=== PATIENT | female | born 1995 | race Caucasian/White ===

== ENCOUNTER 2024-11-26 07:50 | Inpatient (IN) ==
[2024-11-26] MEDS ORDERED: OXYTOCIN 30 UNITS/NSS 30 UNITS/500 ML BAG IV PRN ×2 (09:22→21:02)
[2024-11-26] MEDS: LACTATED RINGER'S 1,000 ML IV PRN (09:50)
[2024-11-26] MEDS: OXYTOCIN 30 UNITS/NSS 30 UNITS/500 ML BAG IV PRN (09:51)
[2024-11-26 09:53] LABS: Hematocrit (blood only) 35.9 % (37.0-47.0); Hemoglobin 12.3 g/dl (12.0-16.0); Mean Corpuscular Hemoglobin 29.5 pg (25.0-34.0); Mean Corpuscular Hgb Conc 34.3 g/dL (32.0-36.0); Mean Corpuscular Volume 86.1 fL (80.0-100.0); Mean Platelet Volume 10.6 fL (9.4-12.4); Platelet Count 228 K/uL (130-400); RDW Coefficient of Variation 14.5 % (11.5-14.5); RDW Standard Deviation 45.1 fL (36.4-46.3); Red Blood Count 4.17 M/uL (4.20-5.40); White Blood Count 9.08 K/ul (4.8-10.8)
--- NOTE | 2024-11-26 10:00 | History & Physical Report ---
Date of Service November 26, 2024 Assessment & Plan (1) Encounter for induction of labor: Plan: Patient is a 29 yo female currently at 38w 5d WGA with PIH (chronic HTN) who is here for induction. Cervix favorable for IOL with Pitocin. Pitocin order in as per protocol. (2) Chronic hypertension affecting : Plan: Under labetalol 100 mg BID. No premonitory symptoms. BP today: 140/90. Monitor regularly. Admission and Anticipated Discharge Date Admission Date: November 26, 2024 History of Present Illness Chief Complaint: Here for IOL. Primary Care Provider: Jorge Cabrera DO Patient is a 29 yo female currently at 38w 5d WGA with PIH( chronic HTN) who is here for induction. Risk factors: #Hypothyroid TSH: 2.0 ( 08/24) #PIH with CHTN prior : Under labetalol , 100mg BID Bp: 137/84 , P:115/min No contractions; movement present; No fluid loss; No bloody show No premonitory s/s today. External FHT and external uterine monitors used; category 1 tracing; normal FHT variability Had regular appointments with OB. Labs Blood type: O+ve Antibody screen: Neg Hgb: 12.3 gm% Plt: 228k (today) Rubella: Immune VDRL/RPR: NR Gonorrhea: NR Chlamydia: NR HIV: NR HbSAg: NR GBS:Neg 24 hour urine protein : 227 H ( 0-149) in 09/12 Allergies Allergy/AdvReac Type Severity Reaction Status Date / Time No Known Allergies Allergy Verified 11/26/24 08:17 Home Medications Medication Instructions Recorded Confirmed Type 21-iron fu-folic acid 1 tab PO .Q Day 09/23/24 11/26/24 History [ Complete] levothyroxine 112 mcg tablet 112 mcg PO DAILY #30 tabs 11/15/24 11/26/24 Rx labetalol 100 mg tablet See Rx Instructions .Route 11/22/24 11/26/24 Rx .COMPLEX #60 tabs Patient History Medical History (Updated 11/26/24 @ 09:56 by Sharee Devlin MD) History of chicken pox Surgical History S/P appendectomy S/P inguinal hernia repair Family History Mother Epilepsy Father Lung cancer Grandmother (Paternal) Leukemia Denies family history of Ovarian cancer Prostate cancer Breast cancer Colorectal cancer Social History Smoking Status: Never smoker Second Hand Exposure: No; Do You Dip or Chew Tobacco: No; Hx Alcohol Use: No Hx Substance Use: No Preferred Language: Bahamian Communication Ability: Effective Visual Impairment: No Limitations Hearing Ability: Normal Quill Fixer Required: No Beliefs That Will Affect Care: None marital status: marital status details: Guillermo (35) [phone] Current Living Situation: Family Current Living Situation Comment: lives with spouse, child, no pets current occupational status: unemployed How many Children do You have: 1 How many Children do You have Comment: almost 2 Other Information That Helps Us Care for You: No Feels Safe at Home: Yes Safety Concerns: Feels Safe At This Time Childhood Exposure to Second-Hand Smoke: No Diet: regular caffeine: Yes (2 cups of coffee daily ) during the past year weight has: increased > 10 lbs Dental Care, Regularly: Yes Physical Activity Frequency: 1-2 Times per Week Seatbelt Use: always Sunscreen Use: No Assistive Devices: None Review of Systems Denies fever, chills, sweats. Denies SOB, difficulty breathing, chest pain, palpitations, and chest pressure. Denies breast pain. Denies dysuria. Denies headache or changes in vision. Physical Exam Physical Exam: General: Alert and oriented. No acute distress CV: Regular rate and rhythm. No murmurs. Respiratory: CTA bilaterally. No rhonchi, wheezes, or crackles. No increased work of breathing. Abdomen: Gravid; Soft, nontender upon palpation Pelvic: Dilated 3 cm; Effacement 75 % ; Station -2 per ( 9:33am) Lower extremities: No deep calf pain. Angi's negative bilaterally. Results & Data Vital Signs (Past 12 Hours) Vital Signs Temp Pulse Resp BP 11/26/24 08:08 115 H 137/84 11/26/24 08:02 37.0 C 18 Supervising Physician Co-Signing Physician Notes Resident Physician Supervision Note: I interviewed and examined the patient. Discussed with Dr. Devlin and agree with findings and plan as documented in the note. Any exceptions or clarifications are listed here: [None] Documented By: Babita Thomas MD Resident Activity Tracking Resident Involvement: Resident Care Provided Care Provided: OB Delivery
--- NOTE | 2024-11-26 13:17 | Labor Progress Brief Note ---
Date of Service November 26, 2024 Subjective Feeling come discomfort Assessment & Plan (1) Encounter for induction of labor: (2) Chronic hypertension affecting : (3) Obesity affecting , antepartum: Plan 29 yo at 38 5/7 wga presents for cHTN IOL VSS Fetus cat 1 Labor - pit at 7, offered arom but pt would prefer to see if it occurs on its own for a little while longer but likely ok w/ it later if it does not occur spontaneously cHTN - labetalol 100mg po bid, bps wnl GBS neg prefers to go w/o epidural Admission and Anticipated Discharge Date Admission Date: November 26, 2024 Physical Exam Genitourinary: Manual OB Exam: + cervical dilation (3-4), + cervical effacement 60% and + station -2 OB Exam Monitor Tracing: + external FHT monitor used, + external uterine monitor used (q4) and + category I (13 0/mod/+accel/-decel) Results & Data Vital Signs (Past 12 Hours) Vital Signs Temp Pulse Resp BP 11/26/24 12:51 100 H 134/77 11/26/24 12:03 90 138/73 11/26/24 12:01 18 11/26/24 12:01 98.8 F 18 11/26/24 10:58 104 H 140/95 11/26/24 09:54 116 H 140/90 11/26/24 08:08 115 H 137/84 11/26/24 08:02 98.6 F 18 Coding Level of Care Code None Diagnoses Encounter for induction of labor Z34.90 Chronic hypertension affecting O10.919 Obesity affecting , antepartum O99.210
--- NOTE | 2024-11-26 17:17 | Labor Progress Brief Note ---
Date of Service November 26, 2024 Subjective Feeling more ctx Assessment & Plan (1) Encounter for induction of labor: (2) Chronic hypertension affecting : (3) Obesity affecting , antepartum: Plan 29 yo at 38 5/7 wga presents for cHTN IOL VSS Fetus cat 1 Labor - progress noted, pt desires to proceed w/ arom. Arom performed, tolerated well. Pit at 13 cHTN - labetalol 100mg po bid, bps wnl GBS neg prefers to go w/o epidural Admission and Anticipated Discharge Date Admission Date: November 26, 2024 Physical Exam Genitourinary: Manual OB Exam: + cervical dilation (4-5), + cervical effacement 70%, + station -2 and + amniotic fluid (arom clear) OB Exam Monitor Tracing: + external FHT monitor used, + external uterine monitor used (q4) and + category I (130/mod/+accel/-decel) Results & Data Vital Signs (Past 12 Hours) Vital Signs Temp Pulse Resp BP 11/26/24 17:10 99.1 F 11/26/24 17:01 125 H 138/80 11/26/24 16:02 93 H 127/78 11/26/24 16:00 18 11/26/24 16:00 18 11/26/24 15:58 98.6 F 11/26/24 14:55 90 129/74 11/26/24 14:03 96 H 128/72 11/26/24 12:51 100 H 134/77 11/26/24 12:03 90 138/73 11/26/24 12:01 18 11/26/24 12:01 98.8 F 18 11/26/24 10:58 104 H 140/95 11/26/24 09:54 116 H 140/90 11/26/24 08:08 115 H 137/84 11/26/24 08:02 98.6 F 18 Coding Level of Care Code None Diagnoses Encounter for induction of labor Z34.90 Chronic hypertension affecting O10.919 Obesity affecting , antepartum O99.210
[2024-11-26] MEDS: LIDOCAINE 1% LOCAL 20 ML VIAL INFIL PRN (20:35)
[2024-11-26] MEDS: LABETALOL HCL 100 MG TAB PO SCH (20:52)
--- NOTE | 2024-11-26 20:52 | Delivery Summary ---
Vaginal Delivery Summary Date of Service November 26, 2024 Vaginal Delivery Summary and 2nd Degree LAC PREOPERATIVE DIAGNOSIS: 1. Single intrauterine at 38 5/7 wga 2. Chronic hypertension on medication 3. Hypothyroid POSTOPERATIVE DIAGNOSIS: 1. Single intrauterine at 38 5/7 wga 2. Chronic hypertension on medication 3. Hypothyroid 4. Delivered PROCEDURE: 1. Normal spontaneous vaginal delivery. SURGEON: Babita Thomas MD ANESTHESIA: Local QUANTITATIVE BLOOD LOSS: 563 mL FLUIDS: Continuous LR. URINE OUTPUT: None. COMPLICATIONS: None. CONDITION: Stable. INDICATIONS: 29 yo at 38 5/7 wga presented for IOL for cHTN. Induction was begun with oxytocin. She underwent arom and progressed to complete and desired to push FINDINGS: A viable female infant, weight pending with Apgars of 9 and 9 at 1 and 5 minutes respectively. SPECIMEN: Cord blood OPERATIVE REPORT: The patient progressed to 10 cm, 100% effaced and +2 station, pushed over intact perineum with anesthesia to deliver a viable female , weight and Apgars as above. Head of delivered in ABDULAZIZ position. Body cord was delivered through. Body and shoulders were delivered without difficulty. was delivered to maternal abdomen and nursing staff. Delayed cord c lamping was performed for 60 seconds. Cord was clamped and cut. Cord blood was obtained. Increased bleeding was noted while awaiting placenta so decision was made to manually extract placenta, placenta was removed intact. Additional sweep did not reveal remaining placenta. IV oxytocin and fundal massage were given for excellent hemostasis. Vagina, cervix, perineum, and placenta were inspected. A second degree was repaired using 3-0 vicryl after local anesthesia was given. There was excellent hemostasis. Sponge and needle counts correct x2. No sponges were left behind. Mother and stable in immediate period. [facility] Vaginal Delivery Charge Vaginal Delivery Codes: 45311 global code for the antepartum, delivery, and post- Delivery Type Details: and 2nd Degree LAC
[2024-11-26] MEDS ORDERED: HYDROCORTISONE ACETATE 25 MG SUPP PR PRN (21:02)
[2024-11-26] MEDS ORDERED: bisacodyL 10 MG SUPP PR PRN (21:02)
[2024-11-26] MEDS ORDERED: ACETAMINOPHEN 325 MG TAB PO PRN (21:02)
[2024-11-26] MEDS: ceFAZolin 2000MG 2,000 MG/15 ML SYR IV STA (21:22)
[2024-11-27] MEDS: BENZOCAINE 20% SPRY 85 APPLN/85 GM CAN EXT PRN (02:18)
[2024-11-27] MEDS: LEVOTHYROXINE SODIUM 112 MCG TABLET PO SCH (06:31)
--- NOTE | 2024-11-27 07:41 | Obstetrical Progress Note ---
Date of Service November 27, 2024 Assessment & Plan (1) Vaginal delivery: Plan: 1st Day following years at term Both mom and baby doing well. Pain: Mild, intermittent Lochia: Moderate Diet: Regular Ob diet Gas: yes Peeing: Normal, no bladder distension Ambulation: Normal Continue care. DC tomorrow. (2) Chronic hypertension affecting : Plan: BP coming down post delivery. Today: 126/83 No premonitory s/s Labetalol 100 BID. Will continue Admission and Anticipated Discharge Date Admission Date: November 26, 2024 Supervising Physician Co-Signing Physician Notes Resident Physician Supervision Note: I interviewed and examined the patient. Discussed with Dr. Devlin and agree with findings and plan as documented in the note. Any exceptions or clarifications are listed here: Doing well, continue routine care Documented By: Babita Thomas MD Subjective 1st Day following years at term No active complains Both mom and baby doing well. Pain: Mild, intermittent Lochia: Moderate Diet: Regular Ob diet Gas: yes Peeing: Normal, no bladder distension Ambulation: Normally Review of Systems Review of Systems: No SOB, chest pain, leg pain No dizziness, headache, palpitation No Blurring of vision , fever Physical Exam Physical Exam: General: Alert and oriented. No acute distress. CVS: S1 S2+ No murmurs, regular rhythm. Respiratory: CTA bilaterally. No rhonchi, wheezes, or crackles. No increased work of breathing. Abdomen: Bowel sound +. Soft, nontender Uterus: Fundus firm and palpable few cm below the umbilicus. Lower extremities: No LE edema. No deep calf pain. Results & Data Vital Signs (Past 12 Hours) Vital Signs Temp Pulse Pulse Pulse Resp BP BP 11/27/24 03:00 36.6 C 116 H 18 126/83 11/26/24 23:01 36.8 C 89 18 116/71 11/26/24 22:27 111 H 106/60 11/26/24 22:12 103 H 112/59 L 11/26/24 21:57 99 H 112/60 11/26/24 21:42 93 H 118/65 11/26/24 21:27 116 H 117/74 11/26/24 21:12 106 H 137/80 11/26/24 20:57 117 H 141/98 H 11/26/24 20:42 102 H 134/73 11/26/24 20:40 36.6 C 16 11/26/24 20:31 100 H 138/76 Pulse Ox O2 Del Method 11/27/24 03:00 Room Air 11/26/24 23:01 97 Room Air 11/26/24 22:27 11/26/24 22:12 11/26/24 21:57 11/26/24 21:42 11/26/24 21:27 11/26/24 21:12 11/26/24 20:57 11/26/24 20:42 11/26/24 20:40 11/26/24 20:31 Resident Activity Tracking Resident Involvement: Resident Care Provided Care Provided: OB Delivery
[2024-11-27] MEDS: DOCUSATE SODIUM 100 MG CAP PO SCH (08:32)
[2024-11-27] MEDS: FERROUS SULFATE 325 MG TAB PO SCH (08:32)
[2024-11-27] MEDS: PRENATAL VITAMIN 1 TAB PO SCH (08:32)
[2024-11-27] MEDS: DIPHTHER/TETAN/PERTUS Vaccine (Tdap, Adol/Adult) 0.5mL IM ONE (13:18)
[2024-11-27] MEDS: bisacodyL 5 MG TABEC PO SCH (21:12)
[2024-11-28 07:38] VITALS: PULSE 101; RESP 18; TEMP 97.5; O2SAT 98
--- NOTE | 2024-11-28 07:45 | Obstetrical Progress Note ---
Date of Service November 28, 2024 Assessment & Plan (1) Vaginal delivery: Ready for D/C home today. Pt voices she has plenty of labetalol at home, will continue at her existing dose for cHTN and does not need Rx. Instructions reviewed and 6wk f/u. Subjective Ambulation: ambulating normally Voiding: no voiding problems Passing Gas:: Yes Diet Tolerance:: regular diet Lochia:: Small Feeding Type:: breast feeding Physical Exam Constitutional WD/WN, vitals as above Eyes PERRL, conjunctivae normal, anicteric sclerae Neck normal visual inspection Respiratory normal respiratory effort and able to speak in complete sentences; no respiratory distress and no labored breathing Cardiovascular Rate/Rhythm: regular rate and regular rhythm Extremities: no edema Chest (Breasts) Chest: normal inspection of chest Gastrointestinal (Abdomen) Inspection/Auscultation: abdomen normal to inspection Soft, postgravid Psychiatric A+Ox3, euthymic affect Genitourinary OB Exam Abdomen: + fundal height Fundus: + firm and + relation to umbilicus (fundus just below umbilicus); not tender Results & Data Vital Signs (Past 12 Hours) Vital Signs Temp Pulse Pulse Resp BP Pulse Ox O2 Del Method 11/28/24 07:18 97.5 F L 101 H 18 135/88 98 Room Air 11/27/24 23:01 98.1 F 93 H 20 132/86 96 Room Air 11/27/24 21:11 99 H 125/79
[2024-11-28] MEDS: IBUPROFEN 600 MG TAB PO PRN (08:11)
[2024-11-28 11:22] VITALS: BP 126/83
== END 2024-11-28 12:53 | disposition home or self-care (01) | DRG 807 ==
LOC: 4S1 07:50 → 4E2 23:11